=== PATIENT | male | born 1930 | race Caucasian/White ===

== ENCOUNTER 2016-12-21 20:36 | Emergency (ER) | payer MEDICARE, OTHER ==
[~2016-12-21] VITALS: Ht 162.6 cm; Wt 65.0 kg
[~2016-12-21 20:36] MED LIST: ASPI81TA11 PO; ENAL10TA PO; ESOM1CAP16 PO; FLUT1SPR20; FURO1TAB60 PO; HYDR-3583 PO; ISOS60TA PO; METO50TA11 PO; NITR1SUB3 SL; PLAV75TA29 PO; SIMV40TA PO; TEMA30CA PO; [UNRECOGNIZED DRUG - CODE] TOPICAL
[2016-12-21 20:45] VITALS: BP 138/85; PULSE 75; RESP 18; TEMP 98; O2SAT 97
[2016-12-22] MEDS ORDERED: BENZ100 PO (11:47)
[2016-12-22] MEDS ORDERED: HYDR-3366 PO (12:52)
== END 2016-12-21 22:30 | disposition left against medical advice (07) ==
LOC: NED 20:36
DX: R68.89 Other general symptoms and signs (principal)
CPT/HCPCS: 99281

== ENCOUNTER 2016-12-22 10:23 | Emergency (ER) | payer MEDICARE, OTHER ==
[~2016-12-22] VITALS: Ht 162.6 cm; Wt 69.3 kg
[2016-12-22 10:28] VITALS: BP 132/86; PULSE 86; RESP 17; TEMP 98.3; O2SAT 97
[2016-12-22 10:51] VITALS: BP 145/72; PULSE 82; RESP 16; O2SAT 96; O2SAT 98
--- NOTE | 2016-12-22 10:53 | PD ---
HPI Chief Complaint: Cold / Flu Symptoms Time Seen by Provider: 10:47 Travel History International Travel<30 days: No Contact w/Intl Traveler<30days: No Traveled to known affect area: No History of Present Illness HPI Mr. Ochoa is a 86-year-old male presents emergency department for evaluation of cough and congestion symptoms for the past week. Of note patient went to the main hospital last night because of a bleeding wound to his left elbow. He was in the waiting room for an extended period of time and was never seen by a physician. Patient states finally the bleeding was controlled and he went home. He states he is on blood thinners but does not know why. Extremely hard of hearing. Endorses a cough productive of phlegm which she swallows down right away. Denies any fevers chills body aches rash. Also endorses some mild diarrhea without any dark stools or blood in the stools. Denies any abdominal pain chest pain shortness of breath. Patient states his primary care physician used to be Dr. Rinku Aguilera but he was not going to follow him to [facility]. Patient does state he has a history of prostate cancer. He currently is trying to establish with a new primary care physician. PFSH Past Medical History Arthritis: Yes Asthma: Yes Autoimmune Disease: No Cancer: Yes (PROSTATE) Cardiac Catheterization: Yes (STENTS) Cardiovascular Problems: Yes High Cholesterol: Yes Congestive Heart Failure: Yes COPD: Yes Coronary Artery Disease: Yes Diminished Hearing: Yes ([place]) Endocrine: No Gastrointestinal Disorders: Yes (POLYPS) GERD: Yes Genitourinary: Yes Headaches: Yes Hiatal Hernia: Yes (HAD SURGERY ON THAT) Hypertension: Yes Immune Disorder: No Musculoskeletal: Yes Neurologic: Yes Psychiatric: No Reproductive: Yes Respiratory: Yes Immunizations Current: Yes Myocardial Infarction: Yes (X2) Triglycerides - High: Yes Ulcer: Yes Tetanus Vaccination: Unknown Past Surgical History Abdominal Surgery: Yes (hiatal hernia repair,JENNY,APPENDECTOMY,COLECTOMY) Appendectomy: Yes Cardiac Surgery: Yes (STENTS) Cholecystectomy: Yes Coronary Artery Bypass Graft: Yes Eye Surgery: Yes (CATARACTS 2007) Neurologic Surgery: No Thoracic Surgery: No Other Surgery: Yes (GANGRENE INTESTINES) Social History Alcohol Use: No Tobacco Use: No (former) Substance Use: No Allergies-Medications (Allergen,Severity, Reaction): Coded Allergies: Penicillin (Verified Allergy, Severe, COLLAPSED,SOB, 12/22/16) Reported Meds & Prescriptions Reported Meds & Active Scripts Active [place] (Hydrocodone-Acetaminophen) 10-325 Mg Tab 1 Tab PO Q6H PRN Tessalon Perles (Benzonatate) 100 Mg Cap 100 Mg PO TID PRN 7 Days Hydrocortisone Butyrate Topical 0.1% Cream 1 Applic TOPICAL Q12HR Reported Eq Allergy Relief (Fluticasone Propionate (Nasal)) 50 Mcg/Act Spr 2 [place] NA DAILY Esomeprazole DR 40 Mg Capdr 40 Mg PO DAILY Metoprolol Succinate ER 24 HR (Metoprolol Succinate) 50 Mg Tab 50 Mg PO DAILY Temazepam 30 Mg Cap 30 Mg PO HS PRN Isosorbide Mononitrate ER (Isosorbide Mononitrate) 60 Mg Tab 60 Mg PO DAILY Aspirin EC (Aspirin) 81 Mg Tabdr 81 Mg PO DAILY Simvastatin 40 Mg Tab 40 Mg PO HS Plavix (Clopidogrel Bisulfate) 75 Mg Tab 75 Mg PO DAILY Nitroglycerin SL (Nitroglycerin) 0.4 Mg Subl 0.4 Mg SL DIRECTED PRN ONE TABLET UNDER THE TONGUE NEEDED FOR CHEST PAIN, MAY REPEAT EVERY FIVE MINUTES FOR A TOTAL OF 3 DOSES OR CALL 911 IF NO RELIEF Hydrocodone-Acetaminophen 10-325 mg Tab 1 Tab PO Q6H PRN Lasix (Furosemide) 40 Mg Tab 40 Mg PO DAILY Enalapril (Enalapril Maleate) 10 Mg Tab 30 Mg PO DAILY Review of Systems Except as stated in HPI: all other systems reviewed are Neg Physical Exam Narrative GENERAL: Well-developed well-nourished no apparent distress. Very hard of hearing. SKIN: Focused skin assessment warm/dry. No rash, there is a pinpoint wound to the left elbow bleeding is controlled. Patient states there was a mole here and he scraped it off. HEAD: Atraumatic. Normocephalic. EYES: Pupils equal and round. No scleral icterus. No injection or drainage. ENT: No nasal bleeding or discharge. Mucous membranes pink and moist. TMs clear bilaterally. NECK: Trachea midline. No JVD. CARDIOVASCULAR: Regular rate and rhythm. No murmur appreciated. RESPIRATORY: No accessory muscle use. Clear to auscultation. Breath sounds equal bilaterally. GASTROINTESTINAL: Abdomen soft, non-tender, nondistended. Hepatic and splenic margins not palpable. MUSCULOSKELETAL: No obvious deformities. No clubbing. No cyanosis. No edema. NEUROLOGICAL: Awake and alert. No obvious cranial nerve deficits. Motor grossly within normal limits. Normal speech. PSYCHIATRIC: Appropriate mood and affect; insight and judgment normal. Data Data Last Documented VS Vital Signs Date Time Temp Pulse Resp B/P Pulse Ox O2 Delivery O2 Flow Rate FiO2 12/22/16 13:15 84 16 132/82 97 Room Air 12/22/16 10:28 98.3 Orders Chest, Pa & Lat (12/22/16 ) Basic Metabolic Panel (Bmp) (12/22/16 10:47) Complete Blood Count With Diff (12/22/16 10:47) Prothrombin Time / Inr (Pt) (12/22/16 10:47) Act Partial Throm Time (Ptt) (12/22/16 10:47) Iv Access Insert/Monitor (12/22/16 10:47) Ecg Monitoring (12/22/16 10:47) Oximetry (12/22/16 10:47) Sodium Chloride 0.9% Flush (Ns Flush) (12/22/16 11:00) Silver Nitrate Applicators (Silver Nitra (12/22/16 12:15) Hand, Complete (Fjc7low) (12/22/16 ) Labs Laboratory Tests Test 12/22/16 12/22/16 11:00 11:28 White Blood Count 6.1 TH/MM3 Red Blood Count 4.05 MIL/MM3 Hemoglobin 12.2 GM/DL Hematocrit 36.7 % Mean Corpuscular Volume 90.4 FL Mean Corpuscular Hemoglobin 30.1 PG Mean Corpuscular Hemoglobin 33.3 % Concent Red Cell Distribution Width 14.2 % Platelet Count 260 TH/MM3 Mean Platelet Volume 7.6 FL Neutrophils (%) (Auto) 69.1 % Lymphocytes (%) (Auto) 20.9 % Monocytes (%) (Auto) 6.0 % Eosinophils (%) (Auto) 2.6 % Basophils (%) (Auto) 1.4 % Neutrophils # (Auto) 4.1 TH/MM3 Lymphocytes # (Auto) 1.3 TH/MM3 Monocytes # (Auto) 0.4 TH/MM3 Eosinophils # (Auto) 0.2 TH/MM3 Basophils # (Auto) 0.1 TH/MM3 CBC Comment DIFF FINAL Differential Comment Prothrombin Time 10.5 SEC Prothromb Time International 1.0 RATIO Ratio Activated Partial 26.8 SEC Thromboplast Time Sodium Level 136 MEQ/L Potassium Level 4.0 MEQ/L Chloride Level 103 MEQ/L Carbon Dioxide Level 23.3 MEQ/L Anion Gap 10 MEQ/L Blood Urea Nitrogen 17 MG/DL Creatinine 1.30 MG/DL Estimat Glomerular Filtration 52 ML/MIN Rate Random Glucose 109 MG/DL Calcium Level 8.5 MG/DL MDM Medical Decision Making Medical Screen Exam Complete: Yes Emergency Medical Condition: Yes Differential Diagnosis URI, pneumonia, Coagulopathy, thrombocytopenia, bleeding wound, hand injury. Narrative Course Patient roomed in emergency department, his initial complaints were URI symptoms. Chest x-ray was negative. He has a secondary complaint of a bleeding wound to the radial aspect of the left elbow. Bleeding is controlled on arrival. It was cauterized with silver nitrate for continued control of his bleeding. No further bleeding was seen in the emergency department. H&H within normal limits, platelets normal, coagulation studies normal. Patient appears well and in no apparent distress. He was being readied for discharge when he had a tertiary complaint of right thumb bruising. Patient states that he symphysis between 2 chairs last night and was wondering if it was just bruised. There is some ecchymosis over the MCP joint of the right hand on the thumb. Skin is intact. Full nontender range of motion. Also motor and sensory intact and cap refill is brisk. X-ray was obtained and shows no abnormality and the patient is stable for discharge. Discussed need follow-up the primary care physician return to ED criteria. Discussed symptomatically management of his URI at home. Last 24 hours Impressions Hand X-Ray 12/22/16 0000 Signed Impressions: Service Date/Time: Thursday, December 22, 2016 13:48 - CONCLUSION: Negative for fracture or dislocation. Follow up in 7-10 days is suggested if symptoms persist.. Evelio Harris MD FACR Chest X-Ray 12/22/16 0000 Signed Impressions: Service Date/Time: Thursday, December 22, 2016 11:03 - CONCLUSION: No acute disease. Evelio Harris MD FACR Diagnosis Primary Impression: Cough Med/Other Pt SpecificInfo: Prescription(s) given Scripts Hydrocodone-Acetaminophen ([place])10-325 Mg Tab1 Tab PO Q6H PRN (PAIN) #10 TAB Ref 0 Prov:Luis Alberto Ramos MD 12/22/16 Benzonatate (Tessalon Perles)100 Mg Obp732 Mg PO TID PRN (COUGH) 7 Days Ref 0 Prov:Luis Alberto Ramos MD 12/22/16 Disposition: 01 DISCHARGE HOME Condition: Stable Luis Alberto Ramos MD Dec 22, 2016 10:53
[2016-12-22] MEDS ORDERED: SODIUM CHLORIDE 0.9% FLUSH 10 ML FLUSH IV FLUSH PRN (11:00)
[2016-12-22 11:10] LABS: AUTOMATED NEUTROPHIL # 4.1 TH/MM3 (1.8-7.7); BASOPHIL # 0.1 TH/MM3 (0-0.2); BASOPHIL % 1.4 % (0.0-2.0); EOSINOPHIL # 0.2 TH/MM3 (0-0.4); EOSINOPHIL % 2.6 % (0.0-4.0); HEMATOCRIT 36.7 % (39.0-51.0); HEMO FLAGS DIFF FINAL; LYMPH % 20.9 % (9.0-44.0); LYMPHOCYTE # 1.3 TH/MM3 (1.0-4.8); MEAN CELL VOLUME 90.4 FL (80.0-100.0); MEAN CORPUSCULAR HEMOGLOBIN 30.1 PG (27.0-34.0); MEAN CORPUSCULAR HGB CONC 33.3 % (32.0-36.0); NEUT % 69.1 % (16.0-70.0); PLATELET COUNT 260 TH/MM3 (150-450); RED BLOOD COUNT 4.05 MIL/MM3 (4.50-5.90); RED CELL DISTRIBUTION WIDTH 14.2 % (11.6-17.2); WHITE BLOOD COUNT 6.1 TH/MM3 (4.0-11.0)
[2016-12-22 11:25] LABS: APTT (PATIENT) 26.8 SEC (24.3-30.1); PROTHROMBIN TIME - PATIENT 10.5 SEC (9.8-11.6)
--- NOTE | 2016-12-22 11:36 | RADHPO ---
EXAM DATE/TIME: 12/22/2016 11:03 [facility] COMPARISON: No previous studies available for comparison. INDICATIONS : Cough MEDICAL HISTORY : Hypertension. Hypercholesterolemia. Myocardial infarction. CHF,CAD, SURGICAL HISTORY : Cardiac catherization, Coronary bypass graft ENCOUNTER: Initial ACUITY: 1 day PAIN SCORE: 6/10 LOCATION: Bilateral chest FINDINGS: PA and lateral views of the chest demonstrate the lungs to be symmetrically aerated without evidence of mass, infiltrate or effusion. The cardiomediastinal contours are unremarkable. Hiatal hernia is noted. Osseous structures are intact. CONCLUSION: No acute disease. Evelio Harris MD FACR on December 22, 2016 at 11:33 Board Certified Radiologist. This report was verified electronically.
[2016-12-22] MEDS ORDERED: BENZ100 PO (11:47)
[2016-12-22 11:56] LABS: BICARBONATE 23.3 MEQ/L (21.0-32.0)
[2016-12-22 12:15] VITALS: BP 138/84; PULSE 84; RESP 16; O2SAT 97
[2016-12-22] MEDS ORDERED: SILVER NITR/POTASSIUM NITRATE APPLICATORS TOPICAL ONE (12:15)
[2016-12-22] MEDS ORDERED: HYDR-3366 PO (12:52)
[2016-12-22 13:15] VITALS: BP 132/82; PULSE 84; RESP 16; O2SAT 97
--- NOTE | 2016-12-22 14:05 | RADHPO ---
EXAM DATE/TIME: 12/22/2016 13:48 [facility] COMPARISON: No previous studies available for comparison. INDICATIONS : Right hand pain after smashing it between 2 chairs MEDICAL HISTORY : None. SURGICAL HISTORY : None. ENCOUNTER: Initial ACUITY: 2 days PAIN SCORE: 8/10 LOCATION: Right thumb FINDINGS: Three view examination of the right hand demonstrates no soft tissue swelling, dislocation, or fractu re. The carpal bones appear intact. The interphalangeal and metacarpophalangeal joints are intact. Bony mineralization is normal. CONCLUSION: Negative for fracture or dislocation. Follow up in 7-10 days is suggested if symptoms persist.. Evelio Harris MD FACR on December 22, 2016 at 14:02 Board Certified Radiologist. This report was verified electronically.
== END 2016-12-22 14:13 | disposition home or self-care (01) ==
LOC: PHED 10:23
DX: R05 Cough (principal); I50.9 Heart failure, unspecified; S51.002A Unspecified open wound of left elbow, initial encounter; X58.XXXA Exposure to other specified factors, initial encounter
CPT/HCPCS: 12001; 71020; 73130; 80048; 85025; 85610; 85730

== ENCOUNTER 2017-01-05 22:03 | Emergency (ER) | payer MEDICARE, OTHER ==
[~2017-01-05] VITALS: Ht 165.1 cm; Wt 71.0 kg
[~2017-01-05 22:03] MED LIST changes: +BENZ100 PO; +HYDR-3366 PO
[2017-01-05 22:10] VITALS: BP 172/92; PULSE 80; RESP 22; TEMP 98.1; O2SAT 99
[2017-01-05] MEDS ORDERED: SODIUM CHLORID 0.9% 500 ML INJ 500 ML IV ONE (22:15)
[2017-01-05] MEDS ORDERED: SODIUM CHLORIDE 0.9% FLUSH 10 ML FLUSH IVF PRN (22:15)
[2017-01-05 22:16] VITALS: BP 172/92; PULSE 73; RESP 22; TEMP 98.1; O2SAT 99
[2017-01-05 22:22] VITALS: PULSE 77; RESP 22; O2SAT 98
[2017-01-05 22:25] LABS: AUTOMATED NEUTROPHIL # 3.9 TH/MM3 (1.8-7.7); BASOPHIL % 0.7 % (0.0-2.0); EOSINOPHIL # 0.2 TH/MM3 (0-0.4); EOSINOPHIL % 2.8 % (0.0-4.0); HEMATOCRIT 34.1 % (39.0-51.0); HEMO FLAGS DIFF FINAL; LYMPH % 31.3 % (9.0-44.0); LYMPHOCYTE # 2.2 TH/MM3 (1.0-4.8); MEAN CELL VOLUME 90.2 FL (80.0-100.0); MEAN CORPUSCULAR HEMOGLOBIN 30.5 PG (27.0-34.0); MEAN CORPUSCULAR HGB CONC 33.8 % (32.0-36.0); NEUT % 57.2 % (16.0-70.0); PLATELET COUNT 263 TH/MM3 (150-450); RED BLOOD COUNT 3.78 MIL/MM3 (4.50-5.90); RED CELL DISTRIBUTION WIDTH 13.9 % (11.6-17.2); WHITE BLOOD COUNT 6.9 TH/MM3 (4.0-11.0)
--- NOTE | 2017-01-05 22:31 | PD ---
HPI Chief Complaint: Cold / Flu Symptoms Time Seen by Provider: 22:12 Travel History International Travel<30 days: No Contact w/Intl Traveler<30days: No Traveled to known affect area: No History of Present Illness HPI Patient is an 86-year-old male who returns to emergency room for evaluation of cough and congestion. Patient reports that he was seen in emergency room on December 22, 2016 for similar symptoms, reports that he was diagnosed with a viral syndrome and was sent home with cough medication. Patient reports that he is still not feeling any better, reports that he has had a nonproductive cough with increased congestion. Patient denies any fevers or chills, reports that he feels weak and achy all over. Patient with no sick contacts at home. Patient denies chest pain or shortness of breath. Denies any recent travels or trips. Patient reports that he has been eating and drinking like his normal self. Reports "i feel achy all over." PFSH Past Medical History Arthritis: Yes Asthma: Yes Autoimmune Disease: No Cancer: Yes (PROSTATE) Cardiac Catheterization: Yes (STENTS) Cardiovascular Problems: Yes High Cholesterol: Yes Congestive Heart Failure: Yes COPD: Yes Coronary Artery Disease: Yes Diminished Hearing: Yes ([place]) Endocrine: No Gastrointestinal Disorders: Yes (POLYPS) GERD: Yes Genitourinary: Yes Headaches: Yes Hiatal Hernia: Yes (HAD SURGERY ON THAT) Hypertension: Yes Immune Disorder: No Musculoskeletal: Yes Neurologic: Yes Psychiatric: No Reproductive: Yes Respiratory: Yes Immunizations Current: Yes Myocardial Infarction: Yes (X2) Triglycerides - High: Yes Ulcer: Yes Past Surgical History Abdominal Surgery: Yes (hiatal hernia repair,JENNY,APPENDECTOMY,COLECTOMY) Appendectomy: Yes Cardiac Surgery: Yes (STENTS) Cholecystectomy: Yes Coronary Artery Bypass Graft: Yes Eye Surgery: Yes (CATARACTS 2007) Neurologic Surgery: No Thoracic Surgery: No Other Surgery: Yes (GANGRENE INTESTINES) Social History Alcohol Use: No Tobacco Use: No (former) Substance Use: No Allergies-Medications (Allergen,Severity, Reaction): Coded Allergies: Penicillin (Verified Allergy, Severe, COLLAPSED,SOB, 12/22/16) Reported Meds & Prescriptions Reported Meds & Active Scripts Active Levaquin (Levofloxacin) 750 Mg Tab 750 Mg PO DAILY 7 Days [place] (Hydrocodone-Acetaminophen) 10-325 Mg Tab 1 Tab PO Q6H PRN Tessalon Perles (Benzonatate) 100 Mg Cap 100 Mg PO TID PRN 7 Days Hydrocortisone Butyrate Topical 0.1% Cream 1 Applic TOPICAL Q12HR Reported Eq Allergy Relief (Fluticasone Propionate (Nasal)) 50 Mcg/Act Spr 2 [place] NA DAILY Esomeprazole DR 40 Mg Capdr 40 Mg PO DAILY Metoprolol Succinate ER 24 HR (Metoprolol Succinate) 50 Mg Tab 50 Mg PO DAILY Temazepam 30 Mg Cap 30 Mg PO HS PRN Isosorbide Mononitrate ER (Isosorbide Mononitrate) 60 Mg Tab 60 Mg PO DAILY Aspirin EC (Aspirin) 81 Mg Tabdr 81 Mg PO DAILY Simvastatin 40 Mg Tab 40 Mg PO HS Plavix (Clopidogrel Bisulfate) 75 Mg Tab 75 Mg PO DAILY Nitroglycerin SL (Nitroglycerin) 0.4 Mg Subl 0.4 Mg SL DIRECTED PRN ONE TABLET UNDER THE TONGUE NEEDED FOR CHEST PAIN, MAY REPEAT EVERY FIVE MINUTES FOR A TOTAL OF 3 DOSES OR CALL 911 IF NO RELIEF Hydrocodone-Acetaminophen 10-325 mg Tab 1 Tab PO Q6H PRN Lasix (Furosemide) 40 Mg Tab 40 Mg PO DAILY Enalapril (Enalapril Maleate) 10 Mg Tab 30 Mg PO DAILY Review of Systems General / Constitutional: No: Fever, Chills Eyes: No: Visual changes HENT: No: Headaches Cardiovascular: No: Chest Pain or Discomfort Respiratory: Positive: Cough, No: Shortness of Breath Gastrointestinal: No: Abdominal Pain Genitourinary: No: Dysuria Musculoskeletal: No: Pain Skin: No Rash Neurologic: Positive: Weakness, No: Headache Psychiatric: No: Depression Endocrine: No: Polydipsia Hematologic/Lymphatic: No: Easy Bruising Physical Exam Narrative GENERAL: nad, nontoxic SKIN: Focused skin assessment warm/dry. HEAD: Atraumatic. Normocephalic. EYES: Pupils equal and round. No scleral icterus. No injection or drainage. ENT: No nasal bleeding or discharge. Mucous membranes pink and moist. NECK: Trachea midline. No JVD. CARDIOVASCULAR: Regular rate and rhythm. No murmur appreciated. RESPIRATORY: No accessory muscle use. Clear to auscultation. Breath sounds equal bilaterally. GASTROINTESTINAL: Abdomen soft, non-tender, nondistended. Hepatic and splenic margins not palpable. MUSCULOSKELETAL: No obvious deformities. No clubbing. No cyanosis. No edema. NEUROLOGICAL: Awake and alert. No obvious cranial nerve deficits. Motor grossly within normal limits. Normal speech. PSYCHIATRIC: Appropriate mood and affect; insight and judgment normal. Data Data Last Documented VS Vital Signs Date Time Temp Pulse Resp B/P Pulse Ox O2 Delivery O2 Flow Rate FiO2 01/05/17 22:26 72 22 98 Room Air 01/05/17 22:16 98.1 172/92 Orders Electrocardiogram (01/05/17 22:13) Complete Blood Count With Diff (01/05/17 22:13) Comprehensive Metabolic Panel (01/05/17 22:13) Influenzae A/B Antigen (01/05/17 22:13) Chest, Single Ap (01/05/17 22:13) Ecg Monitoring (01/05/17 22:13) Iv Access Insert/Monitor (01/05/17 22:13) Oximetry (01/05/17 22:13) Sodium Chloride 0.9% Flush (Ns Flush) (01/05/17 22:15) Sodium Chlorid 0.9% 500 Ml Inj (Ns 500 M (01/05/17 22:15) Blood Culture (01/05/17 23:10) Levofloxacin 750 Mg Premix Inj (Levaquin (01/05/17 23:15) Labs Laboratory Tests Test 01/05/17 22:15 White Blood Count 6.9 TH/MM3 Red Blood Count 3.78 MIL/MM3 Hemoglobin 11.5 GM/DL Hematocrit 34.1 % Mean Corpuscular Volume 90.2 FL Mean Corpuscular Hemoglobin 30.5 PG Mean Corpuscular Hemoglobin 33.8 % Concent Red Cell Distribution Width 13.9 % Platelet Count 263 TH/MM3 Mean Platelet Volume 6.7 FL Neutrophils (%) (Auto) 57.2 % Lymphocytes (%) (Auto) 31.3 % Monocytes (%) (Auto) 8.0 % Eosinophils (%) (Auto) 2.8 % Basophils (%) (Auto) 0.7 % Neutrophils # (Auto) 3.9 TH/MM3 Lymphocytes # (Auto) 2.2 TH/MM3 Monocytes # (Auto) 0.6 TH/MM3 Eosinophils # (Auto) 0.2 TH/MM3 Basophils # (Auto) 0.0 TH/MM3 CBC Comment DIFF FINAL Differential Comment Sodium Level 133 MEQ/L Potassium Level 3.8 MEQ/L Chloride Level 99 MEQ/L Carbon Dioxide Level 24.8 MEQ/L Anion Gap 9 MEQ/L Blood Urea Nitrogen 18 MG/DL Creatinine 1.40 MG/DL Estimat Glomerular Filtration 48 ML/MIN Rate Random Glucose 104 MG/DL Calcium Level 8.7 MG/DL Total Bilirubin 0.3 MG/DL Aspartate Amino Transf 15 U/L (AST/SGOT) Alanine Aminotransferase 17 U/L (ALT/SGPT) Alkaline Phosphatase 74 U/L Total Protein 7.0 GM/DL Albumin 3.5 GM/DL MDM Medical Decision Making Medical Screen Exam Complete: Yes Emergency Medical Condition: Yes Interpretation(s) EKG at 2232: NSR at 71bpm, qt/qtc: 392/411, no acute st or t wave changes Vital Signs Date Time Temp Pulse Resp B/P Pulse Ox O2 Delivery O2 Flow Rate FiO2 01/05/17 22:26 72 22 98 Room Air 01/05/17 22:22 77 22 98 Room Air 01/05/17 22:16 98.1 73 22 172/92 99 Room Air 01/05/17 22:10 98.1 80 22 172/92 99 Differential Diagnosis Influenza, pneumonia, UTI, electrolyte abnormality, ACS, arrhythmia Narrative Course Patient is an 86-year-old male who presents to emergency room with complaints of cough and congestion for the past 2 weeks. Patient reports that he was seen in the hospital last week and was diagnosed with a URI, except the cough medicine hasn't helped him and he still coughing and still feels congested. Reports that now he just feels overall weakness, reports subjective fever/ chills. Denies chest pain/sob. Overall, patient is nontoxic on evaluation. I did review patient's previous ER visit on December 22, 2016. He was seen for cough and congestion over that past week as well as for bleeding to his left elbow wound. Patient did not have the influenza tested at that time, his white count was 6.1 and x-ray of his chest was negative for influenza. Patient was discharged home on [place] for pain as well as Tessalon Perles. Influenza screening ordered, x-ray chest ordered. Labs as well as UA ordered. wbc 6.9 Hemoglobin 11.5 Hematocrit 34.1 Platelets 263 Sodium 133 Potassium 3.8 BUN 18 Creatinine 1.4 Carbon dioxide 24.8 Influenza neg X-ray of the chest: Minimal consolidative changes seen in the left lung base. Mild initial prominence Vital Signs Date Time Temp Pulse Resp B/P Pulse Ox O2 Delivery O2 Flow Rate FiO2 01/05/17 22:26 72 22 98 Room Air 01/05/17 22:22 77 22 98 Room Air 01/05/17 22:16 98.1 73 22 172/92 99 Room Air 01/05/17 22:10 98.1 80 22 172/92 99 Patient's vital signs have remained stable throughout ER visit, patient also nontoxic on evaluation, he does not appear to be in any distress. Blood cultures ordered, will give a dose of IV Levaquin. Plan to send patient home with a prescription for Levaquin, patient will follow-up with his primary care doctor and will return to emergency room as needed. Diagnosis Primary Impression: Pneumonia Qualified Code: J18.1 - Pneumonia of left lower lobe due to infectious organism Additional Impression: Renal insufficiency Patient Instructions: General Instructions Additional Instructions: Please provide patient with a copy of his labwork at discharge Please follow-up with the primary care doctor and 1-2 days Please take all antibiotics as prescribed Please return to emergency room if symptoms progress or worsen Please follow-up with all cultures from today Please drink plenty of fluids Bring a copy of your lab work to your doctor's office for follow up on all findings from today Med/Other Pt SpecificInfo: Prescription(s) given Scripts Levofloxacin (Levaquin)750 Mg Iwd560 Mg PO DAILY 7 Days Ref 0 Prov:Fiona Rod DO 01/05/17 Disposition: 01 DISCHARGE HOME Condition: Stable Fiona Rod DO Jan 05, 2017 22:31
[2017-01-05 22:33] LABS: CHLORIDE 99 MEQ/L (98-107); POTASSIUM 3.8 MEQ/L (3.5-5.1); SODIUM (NA) 133 MEQ/L (136-145)
[2017-01-05 22:37] LABS: ANION GAP 9 MEQ/L (5-15); BICARBONATE 24.8 MEQ/L (21.0-32.0); BLOOD UREA NITROGEN 18 MG/DL (7-18)
[2017-01-05 22:40] LABS: ALT (GPT) 17 U/L (12-78); AST (GOT) 15 U/L (15-37); GLOMERULAR FILTRATION RATE 48 ML/MIN (>89)
[2017-01-05 22:41] LABS: TOTAL BILIRUBIN ADULT 0.3 MG/DL (0.2-1.0)
[2017-01-05 22:43] LABS: ALKALINE PHOSPHATASE 74 U/L (45-117)
--- NOTE | 2017-01-05 22:55 | RADHPO ---
EXAM DATE/TIME: 01/05/2017 22:19 [facility] COMPARISON: No previous studies available for comparison. INDICATIONS : Cough. MEDICAL HISTORY : None. SURGICAL HISTORY : None. ENCOUNTER: Initial ACUITY: 1 week PAIN SCORE: 10/07 LOCATION: Bilateral chest FINDINGS: Minimal consolidative changes are seen in the left base. The heart is enlarged. Mild i nterstitial prominence is evident. The right lung is clear. CONCLUSION: 1. Underaerated with mild interstitial prominence. 2. Consolidative changes in the left base. Evelio Harris MD FACR on January 05, 2017 at 22:52 Board Certified Radiologist. This report was verified electronically.
[2017-01-05] MEDS ORDERED: LEVOFLOXACIN 750 MG PREMIX INJ 150 ML IV ONE (23:15)
[2017-01-05] MEDS ORDERED: LEVA750T PO (23:24)
[2017-01-06] MEDS ORDERED: ACETAMINOPHEN 325 MG TAB PO ONE (00:15)
[2017-01-06 00:50] VITALS: BP 142/77; PULSE 70; RESP 16; O2SAT 97
[2017-01-06 00:58] VITALS: RESP 16
--- NOTE | 2017-01-06 11:38 | EKG ---
Date Performed: 01/05/2017 Time Performed: 22:32:30 PTAGE: 86 years EKG: Sinus rhythm . Leftward axis Inferior infarct - age undetermined Abnormal ECG NO PREVIOUS TRACING DOCTOR: Jeff Engel Interpretating Date/Time 01/06/2017 11:34:53
== END 2017-01-06 01:30 | disposition home or self-care (01) ==
LOC: PHED 22:03
DX: J18.9 Pneumonia, unspecified organism (principal); N28.9 Disorder of kidney and ureter, unspecified; E78.00 Pure hypercholesterolemia, unspecified; I50.9 Heart failure, unspecified; J44.9 Chronic obstructive pulmonary disease, unspecified; I25.10 Atherosclerotic heart disease of native coronary artery without angina pectoris; I10 Essential (primary) hypertension; I25.2 Old myocardial infarction; Z95.1 Presence of aortocoronary bypass graft
CPT/HCPCS: 71010; 80053; 85025; 87040; 87804; 93005; 96361; 96365; 99284; J1956; J7040

== ENCOUNTER → 2017-08-19 | Outpatient (CLI) | payer MEDICARE, OTHER ==
[~2017-08-19] MED LIST changes: -ASPI81TA11 PO; +ASPI81TA23 PO; -BENZ100 PO; +LEVA750T PO; +METO1TAB9 PO; -METO50TA11 PO
[2017-08-20 03:44] LABS: FREE PSA/PSA RATIO 0.05 ratio
== END ==
LOC: CLAB 09:14
PROVIDERS: ATTEND Family Medicine
DX: R97.20 Elevated prostate specific antigen [PSA] (principal)
CPT/HCPCS: 36415; 84153; 84154